=== PATIENT | male | born 1935 | race Hispanic/Latino ===

== ENCOUNTER 2021-04-24 06:14 | Day surgery (SDC) | payer OTHER ==
[2021-04-21 12:31] LABS: BASOPHILS % (AUTO) 0.5 % (0.0-5.0); EOSINOPHILS % (AUTO) 1.5 % (0.0-8.0); HEMATOCRIT 48.4 % (42-54); LYMPHOCYTES % (AUTO) 25.8 % (21.0-51.0); MEAN CORPUSCULAR HEMOGLOBIN 30.2 pg (27.0-33.0); MEAN CORPUSCULAR HGB CONC 33.5 g/dL (32.0-36.0); MEAN CORPUSCULAR VOLUME 90.3 fL (79-99); MONOCYTES % (AUTO) 6.9 % (3.0-13.0); NEUTROPHILS % (AUTO) 64.4 % (40.0-77.0); PLATELET COUNT (AUTO) 286 K/uL (130-400); RED BLOOD CELL COUNT(AUTO) 5.36 MIL/uL (4.50-6.20); RED CELL DISTRIBUTION WIDTH 13.4 % (11.0-15.5); WHITE BLOOD COUNT (AUTO) 9.3 K/uL (4.8-10.8)
[2021-04-21 12:37] LABS: CREATININE 1.1 mg/dL (0.5-1.5)
[2021-04-21 12:47] LABS: INR 1.05 (0.85-1.15); PROTHROMBIN TIME 11.4 SEC (9.6-11.6)
[2021-04-21 12:48] LABS: PARTIAL THROMBOPLASTIN TIME 28.9 SEC (26.3-35.5)
[2021-04-23 18:10] VITALS: BP 148/71
[2021-04-24] VITALS (17 sets, daily range): BP systolic 114–154; BP diastolic 62–83
[~2021-04-24] VITALS: Ht 157.5 cm; Wt 88.1 kg
[~2021-04-24 06:14] MED LIST: AMLO2.5T4 PO; AMOX875T2 PO; CRAN500T3 PO; METF-444 PO; PRAV40TA3 PO
[2021-04-24] MEDS ORDERED: 0.9%NACL 1000ML 1,000 ML IV ONE (06:52)
[2021-04-24] MEDS ORDERED: CEFAZOLIN SODIUM 1 GM VIAL ONE (06:52)
[2021-04-24] MEDS ORDERED: LIDOCAINE 1%-EPI 1:100,000 20 ML VIAL IJ SCH (07:00)
[2021-04-24] MEDS ORDERED: SUCCINYLCHOLINE CHLORIDE 20 MG/ML 10 ML VIAL ONE (07:07)
[2021-04-24] MEDS ORDERED: LIDOCAINE PF 100MG/5ML (2%) SYRINGE 5ML ONE (07:07)
[2021-04-24] MEDS ORDERED: FENTANYL CITRATE PF 50 MCG/1 ML 2ML VIAL ONE (07:09)
[2021-04-24] MEDS ORDERED: PROPOFOL 10 MG/ML 20ML VIAL IV ONE (07:09)
[2021-04-24] MEDS ORDERED: CEFAZOLIN SODIUM 1 GM VIAL IVP ONE (08:00)
[2021-04-24] MEDS ORDERED: BACITRACIN 28.4 GM OINT TP ONE (08:40)
== END 2021-04-24 11:00 | disposition home or self-care (01) ==
LOC: DAH 06:14
PROVIDERS: ATTEND Otolaryngology Plastic Surgery within the Head & Neck
DX: C44.1122 Basal cell carcinoma of skin of right lower eyelid, including canthus (principal); Z20.822 Contact with and (suspected) exposure to COVID-19; I10 Essential (primary) hypertension; E11.9 Type 2 diabetes mellitus without complications; E78.00 Pure hypercholesterolemia, unspecified; M19.90 Unspecified osteoarthritis, unspecified site; E78.5 Hyperlipidemia, unspecified; Z87.891 Personal history of nicotine dependence; Z90.49 Acquired absence of other specified parts of digestive tract; Z79.01 Long term (current) use of anticoagulants; Z98.890 Other specified postprocedural states; Z95.1 Presence of aortocoronary bypass graft
CPT/HCPCS: 11642; 36415; 71045; 80048; 82948 ×2; 85025; 85610; 85730; 87635; 93005; A4215 ×2; A4216; A4221 ×2; A4222 ×2; A4223 ×4; A4606 ×2; A4663 ×2; A6402; C9803; J0690; J2001; J2704; J3010; J3490; J7030 ×2; J0330